=== PATIENT | female | born 1970 | race Caucasian/White ===

== ENCOUNTER 2019-06-13 19:10 | Emergency (ER) | payer OTHER ==
[2019-06-13 19:26] VITALS: RESP 18; TEMP 98.3
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
[2019-06-13] MEDS ORDERED: KETOROLAC 60 MG/2 ML VIAL IM STA (21:33)
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
[2019-06-13] MEDS ORDERED: MORPHINE SULFATE 4 MG/ML SYRINGE IM STA (22:02)
[2019-06-13 22:39] VITALS: BP 138/88; PULSE 59
== END 2019-06-13 22:39 | disposition home or self-care (01) ==
LOC: EC 19:10
DX: M54.2 Cervicalgia (principal); R51 Headache; S40.012A Contusion of left shoulder, initial encounter; M25.552 Pain in left hip; R11.0 Nausea; Z87.39 Personal history of other diseases of the musculoskeletal system and connective tissue; Z88.6 Allergy status to analgesic agent; V63.5XXA Driver of heavy transport vehicle injured in collision with car, pick-up truck or van in traffic accident, initial encounter; Y92.89 Other specified places as the place of occurrence of the external cause
CPT/HCPCS: 73502; 72125; 70450; 99284; 96372 ×2; J2270; J1885

== ENCOUNTER 2021-07-29 03:27 | Observation (INO) | payer MEDICARE, OTHER ==
[2021-07-29] MEDS ORDERED: LORazepam 2 MG/ML INJ IV STA ×2 (04:22→06:31)
[2021-07-29] MEDS ORDERED: SODIUM CHLORIDE 0.9% 500 ML 500 ML IV STA (04:22)
--- NOTE | 2021-07-29 04:25 | ED ---
Chest Pain HPI - General Chief Complaint: Chest Pain Stated Complaint: Anxiety Time Seen by Provider: 07/29/21 03:37 Source: patient Mode of arrival: EMS Limitations: no limitations - History of Present Illness Initial Comments: This patient is a 51-year-old woman who presents to be evaluated for chest pain and feeling of lightheadedness or vertigo which came on tonight. The patient states that prior to onset she had used cocaine. She did not have diaphoresis, nausea or vomiting, there was some mild dyspnea. MD Complaint: chest pain -: hour(s) Onset: associated with drug use Pain Location: substernal Pain Radiation: none Severity: moderate Quality: other (Pounding) Consistency: constant Improves With: nothing Worsens With: nothing Anginal Symptoms: dyspnea Treatments Prior to Arrival: none - Related Data Home Medications Medication Instructions Recorded Confirmed ALPRAZolam [Xanax] 0.5 mg PO DAILY PRN 07/29/21 07/29/21 ALPRAZolam [Xanax] 1 mg PO BID 07/29/21 07/29/21 Morphine Sulfate ER [Ms Contin] 15 mg PO Q8H 07/29/21 07/29/21 Pramipexole [Mirapex] 0.5 mg PO HS 07/29/21 07/29/21 Prazosin [Minipress] 1 mg PO DAILY 07/29/21 07/29/21 QUEtiapine FUMARATE [SEROquel] 400 mg PO HS 07/29/21 07/29/21 QUEtiapine [SEROquel] 200 mg PO DAILY@1400 07/29/21 07/29/21 QUEtiapine [SEROquel] 300 mg PO QAM 07/29/21 07/29/21 Vortioxetine Hydrobromide 20 mg PO DAILY 07/29/21 07/29/21 [Trintellix] Zolpidem Tartrate [Ambien] 10 mg PO HS 07/29/21 07/29/21 busPIRone HCL [Buspar] 30 mg PO TID 07/29/21 07/29/21 Previous Rx's Medication Instructions Recorded Aspirin 81 mg PO DAILY #30 tab 07/30/21 Allergies Allergy/AdvReac Type Severity Reaction Status Date / Time acetaminophen [From Tylenol] AdvReac Itching Verified 07/29/21 18:07 Review of Systems ROS Statement: Those systems with pertinent positive or pertinent negative responses have been documented in the HPI. ROS Other: All systems not noted in ROS Statement are negative. Constitutional: Denies: fever, chills, weakness Eyes: Denies: vision change Respiratory: Denies: cough, dyspnea Cardiovascular: Reports: as per HPI, chest pain, palpitations. Denies: edema, syncope Gastrointestinal: Denies: abdominal pain, vomiting, diarrhea Genitourinary: Denies: dysuria Musculoskeletal: Denies: back pain Skin: Denies: rash Neurological: Denies: headache, weakness Psychiatric: Reports: anxiety EKG Findings - EKG Results: EKG: interpreted by DARREN, sinus rhythm (Sinus tachycardia rate 114 bpm), normal axis, normal QRS, normal ST/T EKG shows: tachycardia Past Medical History Past Medical History: Hypertension Past Surgical History: No Surgical Hx Reported Past Psychological History: ADD/ADHD, Anxiety, Depression, Panic Disorder, PTSD Smoking Status: Former smoker Past Alcohol Use History: None Reported Past Drug Use History: Cocaine - Past Family History Mother Family Medical History: No Reported History Father History Unknown: Yes Family Medical History: Cancer General Exam Limitations: no limitations General appearance: alert, in no apparent distress, anxious Head exam: Present: atraumatic, normocephalic Eye exam: Present: normal appearance. Absent: scleral icterus, conjunctival injection Respiratory exam: Present: normal lung sounds bilaterally. Absent: respiratory distress, wheezes, rales, rhonchi, stridor Cardiovascular Exam: Present: normal rhythm, tachycardia, systolic murmur. Absent: diastolic murmur, rubs, gallop GI/Abdominal exam: Present: soft. Absent: distended, tenderness, guarding, rebound, rigid, mass Extremities exam: Present: normal inspection, normal capillary refill. Absent: pedal edema, calf tenderness Back exam: Present: normal inspection. Absent: CVA tenderness (R), CVA tenderness (L) Neurological exam: Present: alert Psychiatric exam: Present: anxious Skin exam: Present: warm, dry, intact, normal color. Absent: rash Course Vital Signs 07/29/21 07/29/21 07/29/21 03:53 05:51 06:00 Temperature 97.5 F L Pulse Rate 117 H 115 H Respiratory 15 19 Rate Blood Pressure 121/87 123/74 O2 Sat by Pulse 99 99 Oximetry 07/29/21 07/29/21 07/29/21 08:29 13:00 16:18 Temperature Pulse Rate 100 110 H 90 Respiratory 18 Rate Blood Pressure 110/76 O2 Sat by Pulse 98 97 Oximetry Chest Pain MDM - MDM Patient is 51-year-old woman with cocaine associated chest pain. Given this will admit patient for serial cardiac enzymes, telemetry monitoring and cardiology evaluation. Disposition Clinical Impression: Chest pain Disposition: ADMITTED IP TO THIS HOSP Condition: Fair Is patient prescribed a controlled substance at d/c from ED?: No
[2021-07-29] MEDS ORDERED: DIAZEPAM 5 MG/ML 2 ML INJ IVP STA (05:02)
[2021-07-29 05:47] LABS: Basophils % (A) 0 %; Eosinophils # (A) 0.2 k/uL (0-0.7); Eosinophils % (A) 2 %; HCT 31.8 % (34.0-46.0); HGB 10.3 gm/dL (11.4-16.0); Lymphocytes # (A) 0.9 k/uL (1.0-4.8); Lymphocytes % (A) 8 %; MCH 29.8 pg (25.0-35.0); MCHC 32.3 g/dL (31.0-37.0); Mean Platelet Volume 6.7; Monocytes # (A) 0.4 k/uL (0-1.0); Monocytes % (A) 4 %; Neutrophils # (A) 8.8 k/uL (1.3-7.7); Neutrophils % (A) 85 %; Platelet Count 566 k/uL (150-450); RBC 3.45 m/uL (3.80-5.40); RDW 14.3 % (11.5-15.5); WBC 10.3 k/uL (3.8-10.6)
[2021-07-29 06:12] LABS: Albumin 3.8 g/dL (3.5-5.0); Calcium 9.6 mg/dL (8.4-10.2); Potassium 3.8 mmol/L (3.5-5.1); Total Bilirubin 0.4 mg/dL (0.2-1.3)
[2021-07-29] MEDS ORDERED: NITROGLYCERIN SL TABS 0.4 MG TAB SUBLINGUAL PRN (08:21)
[2021-07-29] MEDS ORDERED: MORPHINE SULFATE 4 MG/ML SYRINGE IV STA (08:23)
[2021-07-29] MEDS: ALPRAZolam 1 MG TAB PO SCH ×2 (12:48→21:36)
[2021-07-29] MEDS: QUEtiapine 200 MG TAB PO SCH (12:49)
[2021-07-29] MEDS: busPIRone HCl 10 MG TAB PO SCH ×3 (12:49→21:35)
[2021-07-29] MEDS: VORTIOXETINE HYDROBROMIDE 20 MG TABLET PO SCH (12:49)
[2021-07-29] MEDS: PRAZOSIN 1 MG CAP PO SCH (12:49)
[2021-07-29] MEDS ORDERED: hydrOXYzine pamoate 25 MG CAP PO PRN (13:59)
[2021-07-29] MEDS ORDERED: hydrOXYzine pamoate 25 MG CAP PO ONE (14:00)
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
--- NOTE | 2021-07-29 15:19 | P.HPIM ---
History of Present Illness H&P Date: 07/29/21 Chief Complaint: Chest pain This is a 51-year-old patient who follows with Dr. Virgen. Rather extensive medical history and does follow with the psychiatrist in stable conditions include ADHD, anxiety, depression, panic disorder, PTSD. She last saw her psychiatrist about a week ago. 2 nights ago she went to the local bar with her friends. She tasted a bit of cocaine. What she describes as a very small amount. She has been taking her medications. Overnight she developed pain across the chest. Did go to her jaws of back both her arms. Hopkins very anxious. She even took a shower for 1-1/2 hours. Yesterday she told the and he decided to bring her in. She also noticed yesterday that she was getting what she describes as jerking movements of the body. No loss of consciousness. Looks very anxious. When I saw the patient had not received her morning dose of medications as though being verified. Denies any smoking. No fever no chills. Appetite is fair. Review of systems: GEN.: None EYES: None HEENT: None NECK: None RESPIRATORY: None CARDIOVASCULAR: None GASTROINTESTINAL: None GENITOURINARY: None MUSCULOSKELETAL: Aches and pains in different joints LYMPHATICS: None HEMATOLOGICAL: None PSYCHIATRY: Anxious NEUROLOGICAL: Intermittent jerking movements. Past medical history to include: Hypertension, ADHD, anxiety, depression, panic disorder, PTSD Social history: . Denies any smoking or alcohol. Family history: Reviewed, noncontributory to presentation Physical examination: VITAL SIGNS: 97.5, 115, 19, 123 with 74, 99% room air GENERAL: BMI 25, sitting up in bed, very anxious intermittent jerking of the body. EYES: Pupils equal. Conjunctiva normal. HEENT: External appearance of nose and ears normal, oral cavity grossly normal. NECK: JVD not raised; masses not palpable. HEART: First and second heart sounds are normal; no edema. LUNGS: Respiratory rate normal; clear to auscultation. ABDOMEN: Soft, nontender, liver spleen not palpable, no masses palpable. PSYCH: Alert and oriented x3; mood and affect very anxiousl. MUSCULOSKELETAL:No Clubbing/cyanosis;muscles-grossly intact NEUROLOGICAL: Cranial nerves grossly intact; no facial asymmetry, power and sensation grossly intact. LYMPHATICS: No lymph nodes palpable in the axilla and neck INVESTIGATIONS, reviewed in the clinical context: White count 10.3 hemoglobin 10.3 platelets 566 sodium 136 potassium 3.8 creatinine 1.0 Troponin I 0.018, 0.020, less than 0.012 Coronavirus [PCR]: Not detected EKG tracing personally reviewed by me-normal sinus rhythm, rate 114, Assessment and plan: -Anterior chest wall pain that went back both the arms lasting chronic course. Patient did try a little bit of cocaine. This could be a temporary vasospastic episode. Telemetry. 2-D echo. Cardiology consulted -Chronic pain syndrome MS Contin 50 mg by mouth every 8 -Essential hypertension prazosin 1 mg by mouth daily -ADHD Adderall 10 mg twice a day -Restless leg syndrome Mirapex 0.5 mg daily at bedtime -Anxiety disorder, uncontrolled Xanax 1 mg by mouth twice a day and 0.5 when necessary. Consult psychiatry. -Chronic insomnia from medical problems Ambien 10 mg daily at bedtime -Depression not otherwise specified Seroquel 400 mg at night, 200 mg at 2 PM and 300 mg in the morning. Trintellix 20 mg daily Home medications resumed. Consult psychiatry to evaluate patient's extensive medications. Telemetry. Cardiology consulted. 2-D echo. Past Medical History Past Medical History: Hypertension Past Surgical History: No Surgical Hx Reported Past Psychological History: ADD/ADHD, Anxiety, Depression, Panic Disorder, PTSD Smoking Status: Former smoker Past Alcohol Use History: None Reported Past Drug Use History: Cocaine Medications and Allergies Home Medications Medication Instructions Recorded Confirmed Type ALPRAZolam [Xanax] 0.5 mg PO DAILY PRN 07/29/21 07/29/21 History ALPRAZolam [Xanax] 1 mg PO BID 07/29/21 07/29/21 History Dextroamphetamine/Amphetamine 10 mg PO BID 07/29/21 07/29/21 History [Adderall] Morphine Sulfate ER [Ms Contin] 15 mg PO Q8H 07/29/21 07/29/21 History Pramipexole [Mirapex] 0.5 mg PO HS 07/29/21 07/29/21 History Prazosin [Minipress] 1 mg PO DAILY 07/29/21 07/29/21 History QUEtiapine FUMARATE [SEROquel] 400 mg PO HS 07/29/21 07/29/21 History QUEtiapine [SEROquel] 200 mg PO DAILY@1400 07/29/21 07/29/21 History QUEtiapine [SEROquel] 300 mg PO QAM 07/29/21 07/29/21 History Vortioxetine Hydrobromide 20 mg PO DAILY 07/29/21 07/29/21 History [Trintellix] Zolpidem Tartrate [Ambien] 10 mg PO HS 07/29/21 07/29/21 History busPIRone HCL [Buspar] 30 mg PO TID 07/29/21 07/29/21 History Allergies Allergy/AdvReac Type Severity Reaction Status Date / Time acetaminophen [From Tylenol] AdvReac Itching Verified 06/13/19 19:28 Physical Exam Vitals: Vital Signs Temp Pulse Resp BP Pulse Ox 07/29/21 08:29 100 98 07/29/21 06:00 115 H 19 123/74 99 07/29/21 05:51 97.5 F L 07/29/21 03:53 117 H 15 121/87 99 Intake and Output 07/28/21 07/29/21 07/29/21 22:59 06:59 14:59 Other: Weight 70.307 kg Results CBC & Chem 7: 07/29/21 05:19 07/29/21 05:19 Labs: Abnormal Lab Results - Last 24 Hours (Table) 07/29/21 07/29/21 Range/Units 05:19 05:19 RBC 3.45 L (3.80-5.40) m/uL Hgb 10.3 L (11.4-16.0) gm/dL Hct 31.8 L (34.0-46.0) % Plt Count 566 H (150-450) k/uL Neutrophils # 8.8 H (1.3-7.7) k/uL Lymphocytes # 0.9 L (1.0-4.8) k/uL Sodium 136 L (137-145) mmol/L Glucose 158 H (74-99) mg/dL Alkaline Phosphatase 27 L (38-126) U/L
[2021-07-29] MEDS: ALPRAZolam 0.5 MG TAB PO PRN (18:03)
[2021-07-29] MEDS: MORPHINE SULFATE ER 15 MG TABLET PO SCH (18:04)
[2021-07-29] MEDS: PATIENT'S OWN (Dextroamphetamine/Amphetamine [Adderall] 20 MG Tablet) PO SCH (18:24)
[2021-07-29] MEDS ORDERED: ZOLPIDEM 5 MG TAB PO SCH (21:00)
[2021-07-29] MEDS ORDERED: PRAMIPEXOLE 0.5 MG TAB PO SCH (21:00)
[2021-07-29] MEDS ORDERED: QUEtiapine 200 MG TAB PO SCH (21:00)
[2021-07-30] MEDS: MORPHINE SULFATE ER 15 MG TABLET PO SCH ×2 (01:32→07:31)
[2021-07-30] MEDS: ALPRAZolam 0.5 MG TAB PO PRN ×2 (01:36→13:55)
[2021-07-30 02:24] VITALS: RESP 18
[2021-07-30] MEDS: PATIENT'S OWN (Dextroamphetamine/Amphetamine [Adderall] 20 MG Tablet) PO SCH (07:28)
[2021-07-30] MEDS: VORTIOXETINE HYDROBROMIDE 20 MG TABLET PO SCH (07:31)
[2021-07-30] MEDS: PRAZOSIN 1 MG CAP PO SCH (07:31)
[2021-07-30] MEDS: ALPRAZolam 1 MG TAB PO SCH (07:31)
[2021-07-30] MEDS: busPIRone HCl 10 MG TAB PO SCH (07:32)
[2021-07-30] MEDS ORDERED: ASPIRIN 325 MG TAB PO SCH (09:00)
[2021-07-30] MEDS ORDERED: QUEtiapine 100 MG TAB PO SCH (09:00)
[2021-07-30 09:24] LABS: Chol/HDL Ratio 4.48 Ratio; LDL Cholesterol,Calculated 99.8 mg/dL (0.0-131.0)
--- NOTE | 2021-07-30 09:26 | P.CRDCN ---
History of Present Illness History of present illness: HISTORY OF PRESENTING ILLNESS This is a pleasant 51-year-old female past medical history significant for Anxiety, depression, panic disorder, PTSD, cocaine use, former smoker, ADD/ADHD. She does not follow with a piercer. We have been asked to see in consultation for chest pain. Patient presents to the emergency department with complaints of a severe panic attack and vertigo at home. She states yesterday she had acute onset of dizziness and vertigo, she then proceeded to have a "pa alice attack". She had heavy breathing, chest discomfort and some shortness of breath, she states it continued, her called EMS. Prior to this she states she had a friend come over and she did "3 lines of cocaine". This is her first time doing cocaine since 20 years ago. Patient states that she's been having multiple stressors at home with her family. and she suffers from panic disorder and has panic attacks frequently. She states when these happen she has chest heaviness/discomfort and some mild shortness of breath. She denies any syncope or near syncope, palpitations, symptoms of orthopnea or PND. Prior to this episode she denies any symptoms of chest pain, dyspnea on exertion, exert ional chest pain. She denies any history of CO, Stroke, Diabetes, or hypertension, or CAD. She denies tobacco use, alcohol use, or other illicit drug use. States she has not used cocaine in 20 years. She has a family history of her sister having an CO after using cocaine. DIAGNOSTICS EKG reveals sinus tachycardia, heart rate 114, no significant ST-T wave abnormalities. Telemetry tracings indicate sinus mechanism, heart rate 80s90s Laboratory reviewed, troponin negative 3, COVID-19 negative, d-dimer negative, WBC 10.3, hemoglobin 10.3, platelets 566, sodium 136, potassium 3.8, BUN 11, serum creatinine 1.0, Current home medications include Seroquel, morphine, Ambien, prazosin, adderall, xanax, buspar, trintellix, mirapex. REVIEW OF SYSTEMS At the time of my exam: CONSTITUTIONAL: Denies fever or chills. CARDIOVASCULAR: Denies chest pain, shortness of breath, orthopnea, PND or palpitations. RESPIRATORY: Denies cough. GASTROINTESTINAL: Denies abdominal pain, diarrhea, constipation, nausea or vomiting. MUSCULOSKELETAL: Denies myalgias. NEUROLOGIC: Denies numbness, tingling, headacbe or weakness. ENDOCRINE: Denies fatigue, weight change, polydipsia or polyurina. GENITOURINARY: Denies burning, hematuria or urgency with micturation. HEMATOLOGIC: Denies history of anemia or bleeding. PHYSICAL EXAMINATION Blood pressure 117/73, heart rate 93, afebrile, saturations 97% on room air CONSTITUTIONAL: No apparent distress. HEENT: Head is normocephalic. Pupils are equal, round. Sclerae anicteric. Mucous membranes of the mouth are moist. No JVD. No carotid bruit. CHEST EXAMINATION: Lungs are clear to auscultation. No chest wall tenderness is noted on palpation or with deep breathing. HEART EXAMINATION: Regular rate and rhythm. S1, S2 heard. No murmurs, gallops or rub. ABDOMEN: Soft, nontender. Positive bowel sounds. EXTREMITIES: 2+ peripheral pulses, no lower extremity edema and no calf tenderness. NEUROLOGIC EXAMINATION: Patient is awake, alert and oriented x3. ASSESSMENT Chest pain, atypical acute coronary syndrome has been ruled out, likely related to panic attack and cocaine use Cocaine use Anxiety Depression Panic disorder History of PTSD Former nicotine dependence PLAN We will obtain 2D echocardiogram and doppler study to assess cardiac structure and function, if no acute findings, no further inpatient workup from a cardiology perspective. Rest of management per primary. Nurse Practitioner note has been reviewed, I agree with a documented findings an d plan of care. Patient was seen and examined. Past Medical History Past Medical History: Hypertension Past Surgical History: No Surgical Hx Reported Past Psychological History: ADD/ADHD, Anxiety, Depression, Panic Disorder, PTSD Smoking Status: Former smoker Past Alcohol Use History: None Reported Past Drug Use History: Cocaine - Past Family History Mother Family Medical History: No Reported History Father History Unknown: Yes Family Medical History: Cancer Medications and Allergies Home Medications Medication Instructions Recorded Confirmed Type ALPRAZolam [Xanax] 0.5 mg PO DAILY PRN 07/29/21 07/29/21 History ALPRAZolam [Xanax] 1 mg PO BID 07/29/21 07/29/21 History Dextroamphetamine/Amphetamine 10 mg PO BID 07/29/21 07/29/21 History [Adderall] Morphine Sulfate ER [Ms Contin] 15 mg PO Q8H 07/29/21 07/29/21 History Pramipexole [Mirapex] 0.5 mg PO HS 07/29/21 07/29/21 History Prazosin [Minipress] 1 mg PO DAILY 07/29/21 07/29/21 History QUEtiapine FUMARATE [SEROquel] 400 mg PO HS 07/29/21 07/29/21 History QUEtiapine [SEROquel] 200 mg PO DAILY@1400 07/29/21 07/29/21 History QUEtiapine [SEROquel] 300 mg PO QAM 07/29/21 07/29/21 History Vortioxetine Hydrobromide 20 mg PO DAILY 07/29/21 07/29/21 History [Trintellix] Zolpidem Tartrate [Ambien] 10 mg PO HS 07/29/21 07/29/21 History busPIRone HCL [Buspar] 30 mg PO TID 07/29/21 07/29/21 History Allergies Allergy/AdvReac Type Severity Reaction Status Date / Time acetaminophen [From Tylenol] AdvReac Itching Verified 07/29/21 18:07 Physical Exam Vitals: Vital Signs Temp Pulse Resp BP Pulse Ox 07/29/21 13:00 110 H 18 110/76 97 07/29/21 08:29 100 98 07/29/21 06:00 115 H 19 123/74 99 07/29/21 05:51 97.5 F L 07/29/21 03:53 117 H 15 121/87 99 Intake and Output 07/28/21 07/29/21 07/29/21 22:59 06:59 14:59 Other: Weight 70.307 kg Results 07/29/21 05:19 07/29/21 05:19 Cardiac Enzymes 07/29/21 07/29/21 07/29/21 Range/Units 05:19 05:19 08:36 AST 18 (14-36) U/L Troponin I 0.018 0.020 (0.000-0.034) ng/mL 07/29/21 Range/Units 11:04 AST (14-36) U/L Troponin I <0.012 (0.000-0.034) ng/mL CBC 07/29/21 Range/Units 05:19 WBC 10.3 (3.8-10.6) k/uL RBC 3.45 L (3.80-5.40) m/uL Hgb 10.3 L (11.4-16.0) gm/dL Hct 31.8 L (34.0-46.0) % Plt Count 566 H (150-450) k/uL Comprehensive Metabolic Panel 07/29/21 Range/Units 05:19 Sodium 136 L (137-145) mmol/L Potassium 3.8 (3.5-5.1) mmol/L Chloride 101 (98-107) mmol/L Carbon Dioxide 26 (22-30) mmol/L BUN 11 (7-17) mg/dL Creatinine 1.00 (0.52-1.04) mg/dL Glucose 158 H (74-99) mg/dL Calcium 9.6 (8.4-10.2) mg/dL AST 18 (14-36) U/L ALT 25 (4-34) U/L Alkaline Phosphatase 27 L (38-126) U/L Total Protein 7.0 (6.3-8.2) g/dL Albumin 3.8 (3.5-5.0) g/dL Current Medications Generic Name Dose Route Start Last Admin Trade Name Freq PRN Reason Stop Dose Admin Alprazolam 0.5 mg 07/29/21 12:13 Alprazolam 0.5 Mg Tab PO DAILY PRN Anxiety Alprazolam 1 mg 07/29/21 12:15 07/29/21 12:48 Alprazolam 1 Mg Tab PO 1 mg BID JOE Administration Aspirin 325 mg 07/30/21 09:00 Aspirin 325 Mg Tab PO DAILY [facility] Buspirone HCl 30 mg 07/29/21 12:15 07/29/21 12:49 Buspirone Hcl 10 Mg Tab PO 30 mg TID JOE Administration Morphine Sulfate 15 mg 07/29/21 16:00 Morphine Sulfate Er 15 Mg Tablet PO Q8H [facility] Protocol Nitroglycerin 0.4 mg 07/29/21 08:21 Nitroglycerin Sl Tabs 0.4 Mg Tab SUBLINGUAL Q5M PRN Chest Pain Patient's Own ( 10 mg 07/29/21 15:00 Dextroamphetamine/ PO Amphetamine [ BID@0700,1500 [facility] Adderall] 20 Mg Tablet) Pramipexole Dihydrochloride 0.5 mg 07/29/21 21:00 Pramipexole 0.5 Mg Tab PO HS JOE Prazosin HCl 1 mg 07/29/21 12:15 07/29/21 12:49 Prazosin 1 Mg Cap PO 1 mg DAILY JOE Administration Quetiapine Fumarate 300 mg 07/30/21 09:00 Quetiapine 100 Mg Tab PO QAM JOE Quetiapine Fumarate 200 mg 07/29/21 14:00 07/29/21 12:49 Quetiapine 200 Mg Tab PO 200 mg DAILY@1400 JOE Administration Quetiapine Fumarate 400 mg 07/29/21 21:00 Quetiapine 200 Mg Tab PO HS JOE Vortioxetine 20 mg 07/29/21 12:15 07/29/21 12:49 Vortioxetine Hydrobromide 20 Mg Tablet PO 20 mg DAILY JOE Administration Zolpidem Tartrate 10 mg 07/29/21 21:00 Zolpidem 5 Mg Tab PO HS JOE Intake and Output 07/28/21 07/29/21 07/29/21 22:59 06:59 14:59 Other: Weight 70.307 kg 07/29/21 05:19 07/29/21 05:19
--- NOTE | 2021-07-30 10:15 | ECHOF ---
Referral Reason:Chest pain MEASUREMENTS -------- HEIGHT: 165.1 cm WEIGHT: 70.3 kg BP: 105/68 RVIDd: 3.0 cm (< 3.3) IVSd: 1.4 cm (0.6 - 1.1) LVIDd: 3.2 cm (3.9 - 5.3) LVPWd: 1.3 cm (0.6 - 1.1) IVSs: 1.5 cm LVIDs: 1.6 cm LVPWs: 2.0 cm Ao Diam: 2.4 cm (2.0 - 3.7) AV Cusp: 1.6 cm (1.5 - 2.6) LA Diam: 2.9 cm (2.7 - 3.8) MV EXCURSION: 13.586 mm (> 18.000) MV EF SLOPE: 66 mm/s (70 - 150) EPSS: 0.2 cm MV E Stephon: 0.93 m/s MV DecT: 164 ms MV A Stephon: 0.83 m/s MV E/A Ratio: 1.12 RAP: 5.00 mmHg RVSP: 18.56 mmHg FINDINGS -------- Sinus rhythm. This was a technically adequate study. The left ventricular size is normal. There is mild concentric left ventricular hypertrophy. Overa ll left ventricular systolic function is normal with, an EF between 55 - 60 %. The diastolic fillin g pattern is normal for the age of the patient 8.65. The right ventricle is normal in size. The left atrial size is normal. The right atrial size is normal. Interatrial and interventricular septum intact. The aortic valve is trileaflet and appears structurally normal. There is no evidence of aortic regu rgitation. There is no evidence of aortic stenosis. No mitral regurgitation. Trace tricuspid regurgitation present. There is no evidence of pulmonary hypertension. The right ventricular systolic pressure, as measured by Doppler, is 18.56mmHg. There is no pulmonic regurgitation present. The aortic root size is normal. IVC Not well visulized. There is no pericardial effusion. CONCLUSIONS -------- 1. The left ventricular size is normal. 2. There is mild concentric left ventricular hypertrophy. 3. Overall left ventricular systolic function is normal with, an EF between 55 - 60 %. 4. The diastolic filling pattern is normal for the age of the patient 8.65 5. Trace tricuspid regurgitation present. PRIEST: Rosario Nevarez RDCS
[2021-07-30 13:27] VITALS: BP 113/69; PULSE 61; TEMP 98
[2021-07-30] MEDS: QUEtiapine 200 MG TAB PO SCH (13:50)
--- NOTE | 2021-07-30 21:33 | P.DS ---
Providers Date of admission: 07/29/21 08:23 Expected date of discharge: 07/30/21 Attending physician: Zeke Walker Consults: 07/29/21 12:20 Consult Physician Routine Consulting Provider: Carina Alex Consult Reason/Comments: CHEST PAIN Do you want consulting provider notified?: Yes 07/29/21 12:21 Consult Physician Routine Consulting Provider: Dany Kulkarni Consult Reason/Comments: UNCONTROLLED ANXIETY Do you want consulting provider notified?: Yes Primary care physician: Dany [facility] Course: Chief Complaint: Chest pain This is a 51-year-old patient who follows with Dr. Virgen. Rather extensive medical history and does follow with the psychiatrist in stable conditions include ADHD, anxiety, depression, panic disorder, PTSD. She last saw her psychiatrist about a week ago. 2 nights ago she went to the local bar with her friends. She tasted a bit of cocaine. What she describes as a very small amount. She has been taking her medications. Overnight she developed pain across the chest. Did go to her jaws of back both her arms. [place] very anxious. She even took a shower for 1-1/2 hours. Yesterday she told the and he decided to bring her in. She also noticed yesterday that she was getting what she describes as jerking movements of the body. No loss of consciousness. Looks very anxious. When I saw the patient had not received her morning dose of medications as though being verified. Denies any smoking. No fever no chills. Appetite is fair. Patient is felt to have possible cocaine induced coronary vasospasm. Patient advised not to take cocaine. Today also discussed with Dr. Kulkarni from psychiatry. Adderall discontinued. Patient to follow-up with a psychiatrist. Cleared by cardiology. Consultation: Dr. Kulkarni from psychiatry Dr. Ritchie Holm from cardiology Past medical history to include: Hypertension, ADHD, anxiety, depression, panic disorder, PTSD Social history: . Denies any smoking or alcohol. Family history: Reviewed, noncontributory to presentation Physical examination: VITAL SIGNS: 98, 61, 18, 113/69, 100% on room air GENERAL: Laying in bed, comfortable EYES: Pupils equal. Conjunctiva normal. HEENT: External appearance of nose and ears normal, oral cavity grossly normal. NECK: JVD not raised; masses not palpable. HEART: First and second heart sounds are normal; no edema. LUNGS: Respiratory rate normal; clear to auscultation. ABDOMEN: Soft, nontender, liver spleen not palpable, no masses palpable. PSYCH: Alert and oriented x3; mood and affect slightly anxious. MUSCULOSKELETAL:No Clubbing/cyanosis;muscles-grossly intact INVESTIGATIONS, reviewed in the clinical context: 2-D echocardiogram: EF 55-60% LDL 99.8 White count 10.3 hemoglobin 10.3 platelets 566 sodium 136 potassium 3.8 creatinine 1.0 Troponin I 0.018, 0.020, less than 0.012 Coronavirus [PCR]: Not detected EKG tracing personally reviewed by me-normal sinus rhythm, rate 114, Assessment and plan: -Anterior chest wall pain that went back both the arms possibly cocaine induced vasospastic coronary episode. 2-D echo unremarkable. Cleared by cardiology. -Chronic pain syndrome MS Contin 50 mg by mouth every 8 -Essential hypertension prazosin 1 mg by mouth daily -ADHD Adderall 10 mg twice a day-to be discontinued as per Dr. Kulkarni. -Restless leg syndrome Mirapex 0.5 mg daily at bedtime -Anxiety disorder, uncontrolled Xanax 1 mg by mouth twice a day and 0.5 when necessary. Consult psychiatry. -Chronic insomnia from medical problems Ambien 10 mg daily at bedtime -Depression not otherwise specified Seroquel 400 mg at night, 200 mg at 2 PM and 300 mg in the morning. Trintellix 20 mg daily Disposition: Home Plan - Discharge Summary New Discharge Prescriptions: New Aspirin 81 mg PO DAILY #30 tab Continue Prazosin [Minipress] 1 mg PO DAILY busPIRone HCL [Buspar] 30 mg PO TID ALPRAZolam [Xanax] 1 mg PO BID Pramipexole [Mirapex] 0.5 mg PO HS QUEtiapine FUMARATE [SEROquel] 400 mg PO HS QUEtiapine [SEROquel] 300 mg PO QAM QUEtiapine [SEROquel] 200 mg PO DAILY@1400 Vortioxetine Hydrobromide [Trintellix] 20 mg PO DAILY Morphine Sulfate ER [Ms Contin] 15 mg PO Q8H Zolpidem Tartrate [Ambien] 10 mg PO HS ALPRAZolam [Xanax] 0.5 mg PO DAILY PRN PRN Reason: Anxiety Discontinued Dextroamphetamine/Amphetamine [Adderall] 10 mg PO BID Discharge Medication List ALPRAZolam [Xanax] 0.5 mg PO DAILY PRN 07/29/21 [History] ALPRAZolam [Xanax] 1 mg PO BID 07/29/21 [History] Morphine Sulfate ER [Ms Contin] 15 mg PO Q8H 07/29/21 [History] Pramipexole [Mirapex] 0.5 mg PO HS 07/29/21 [History] Prazosin [Minipress] 1 mg PO DAILY 07/29/21 [History] QUEtiapine FUMARATE [SEROquel] 400 mg PO HS 07/29/21 [History] QUEtiapine [SEROquel] 200 mg PO DAILY@1400 07/29/21 [History] QUEtiapine [SEROquel] 300 mg PO QAM 07/29/21 [History] Vortioxetine Hydrobromide [Trintellix] 20 mg PO DAILY 07/29/21 [History] Zolpidem Tartrate [Ambien] 10 mg PO HS 07/29/21 [History] busPIRone HCL [Buspar] 30 mg PO TID 07/29/21 [History] Aspirin 81 mg PO DAILY #30 tab 07/30/21 [Rx] Follow up Appointment(s)/Referral(s): psychiatrist,own [Other] - 1 Week Dany Virgen DO [Primary Care Provider] - 1-2 days Miguel A Holm MD [STAFF PHYSICIAN] - 3 Weeks (Office will call patient with appointment ) Activity/Diet/Wound Care/Special Instructions: FOLLOW UP DIRECTED BY MD, SOONER IF WORSENING SYMPTOMS THAT BROUGHT YOU IN. Discharge Disposition: HOME SELF-CARE
--- NOTE | 2021-08-13 09:00 | CDI ---
History/Risk Factors: Clinical Indicators: Treatment: In order to accurately reflect this patients severity of illness,conflicting due to suspicion for abuse. Would you please clarify: Cardiology consult assessment states Cocaine Use. The psych consult states conflicting information stating cocaine use/abuse. Notes from chart: Spoke with patient in depth about substance abuse, abusing controlled medications and tolerance. Also spoke with her about the link between the cocaine use and her chest pain and panic attack.-please avoid increasing or adding on further controlled medications at this time due to suspicion for abuse and/or tolerance. [ ] Cocaine use [ ] Cocaine abuse Please document in your progress notes and discharge summary in order to capture severity of illness and risk of mortality. Include clinical findings that support your diagnosis. __+___ Place X here if this finding has no clinical significance, is not applicable or if you are not able to provide any additional documentation. MTDD
== END 2021-07-30 14:30 | disposition home or self-care (01) ==
LOC: EC 03:27 → 6NMEDSUR 08:23
PROVIDERS: ADMIT Hospitalist; ATTEND Hospitalist
DX: F41.9 Anxiety disorder, unspecified (principal); G89.4 Chronic pain syndrome; I10 Essential (primary) hypertension; F90.9 Attention-deficit hyperactivity disorder, unspecified type; Z20.822 Contact with and (suspected) exposure to COVID-19; G25.81 Restless legs syndrome; F51.04 Psychophysiologic insomnia; F32.A Depression, unspecified; R00.0 Tachycardia, unspecified; R06.02 Shortness of breath; F43.10 Post-traumatic stress disorder, unspecified; R42 Dizziness and giddiness; R07.2 Precordial pain; R07.89 Other chest pain; R25.8 Other abnormal involuntary movements; F41.0 Panic disorder [episodic paroxysmal anxiety]; Z71.51 Drug abuse counseling and surveillance of drug abuser; Z79.899 Other long term (current) drug therapy; Z63.0 Problems in relationship with spouse or partner; Z56.0 Unemployment, unspecified; Z88.6 Allergy status to analgesic agent; Z63.8 Other specified problems related to primary support group; Z87.891 Personal history of nicotine dependence; Z81.8 Family history of other mental and behavioral disorders; Z81.3 Family history of other psychoactive substance abuse and dependence; Z82.49 Family history of ischemic heart disease and other diseases of the circulatory system
CPT/HCPCS: 96361; 96374; 96375; 99285; 36415; 93005; 93306; 85379; 80061; 80053; 84484; 85025; 87635; G0378 ×2; J2060; J2270; J3360

== ENCOUNTER 2022-06-10 02:12 | Emergency (ER) | payer MEDICARE ==
[2022-06-10 02:32] VITALS: RESP 18
[2022-06-10] MEDS ORDERED: BUTALB/APAP/CAFF 50-325-40MG TAB PO STA (03:35)
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
--- NOTE | 2022-06-10 05:09 | XR ---
EXAMINATION TYPE: XR knee complete LT DATE OF EXAM: 06/10/2022 COMPARISON: NONE HISTORY: Pain TECHNIQUE: 3 views FINDINGS: There is mild spurring on the superior patella. No fracture nor dislocation. No sign of a j oint effusion. Joint spaces are fairly normal. IMPRESSION: Mild spurring of the patella. No fracture.
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
--- NOTE | 2022-06-10 05:11 | XR ---
EXAMINATION TYPE: XR elbow limited LT DATE OF EXAM: 06/10/2022 COMPARISON: NONE HISTORY: Pain TECHNIQUE: 2 view FINDINGS: There is no sign of fracture nor dislocation. Radial head is intact. No sign of elbow joint effusion. IMPRESSION: Negative left elbow exam. No fracture.
[2022-06-10 05:42] VITALS: BP 162/92; PULSE 69; TEMP 98
== END 2022-06-10 05:41 | disposition home or self-care (01) ==
LOC: EC 02:12
DX: S66.912A Strain of unspecified muscle, fascia and tendon at wrist and hand level, left hand, initial encounter (principal); S86.912A Strain of unspecified muscle(s) and tendon(s) at lower leg level, left leg, initial encounter; S09.90XA Unspecified injury of head, initial encounter; I10 Essential (primary) hypertension; F32.A Depression, unspecified; F41.9 Anxiety disorder, unspecified; F17.200 Nicotine dependence, unspecified, uncomplicated; Z88.6 Allergy status to analgesic agent; Y04.0XXA Assault by unarmed brawl or fight, initial encounter
CPT/HCPCS: 70450; 70486; 71045; 72100; 72170; 99284

== ENCOUNTER → 2023-01-20 | Outpatient (CLI) | payer MEDICARE ==
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
== END | disposition home or self-care (01) ==
LOC: RADMRIMAIN 19:24
PROVIDERS: ATTEND Anesthesiology
DX: M50.122 Cervical disc disorder at C5-C6 level with radiculopathy (principal); M47.22 Other spondylosis with radiculopathy, cervical region; R20.0 Anesthesia of skin
CPT/HCPCS: 72156; A9585

== ENCOUNTER → 2023-09-20 | Outpatient (CLI) | payer MEDICARE ==
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
== END | disposition home or self-care (01) ==
LOC: RADMRIMAIN 08:07
PROVIDERS: ATTEND Anesthesiology
DX: M47.22 Other spondylosis with radiculopathy, cervical region (principal); M99.71 Connective tissue and disc stenosis of intervertebral foramina of cervical region
CPT/HCPCS: 72141